=== PATIENT | female | born 1965 | race Caucasian/White ===

== ENCOUNTER 2016-08-13 16:10 | Emergency (ER) | payer OTHER ==
[2016-08-13] MEDS ORDERED: HYDROCODONE/APAP 5/325 TAB PO ONE (16:45)
[2016-08-13] MEDS ORDERED: NS 1,000 ML IV ONE (16:45)
[2016-08-13] MEDS ORDERED: BENZONATATE 100 MG CAP PO ONE ×2 (16:59→17:22)
--- NOTE | 2016-08-13 17:11 | EDPHY ---
H & P Stated Complaint: cough/seen by pcp walter simms not better HPI/ROS: CHIEF COMPLAINT: cough, recent diagnosis of pneumonia HISTORY OF PRESENT ILLNESS: patient reports being ill since last Saturday. It started with a sore throat and quickly progressed to a cough. She had worsening symptoms over those 2 days and was seen at her doctor's office last . She was diagnosed with pneumonia on clinical evaluation without chest x-ray laboratory studies. She was prescribed cough medicine and Zithromax. She has taken all these as prescribed. She felt a little bit better on Saturday and Saturday, but the symptoms returned on Saturday. She also has headache with cough, nausea, body aches, chills. She had a fever until Saturday or Saturday, but she no longer has a fever. No chest pain. No shortness of breath. No abdominal pain. Nausea but no vomiting. No urinary complaints. No neck pain or stiffness. symptoms are all mild to moderate rest , and worse with cough. Minimal improvement with Cheratussin cough medicine. No other associated complaints or modifying factors. REVIEW OF SYSTEMS: Ten systems reviewed and are negative unless otherwise noted in the HPI EXAMINATION General Appearance: Alert, no distress , Nontoxic. Coryza Head: normocephalic, atraumatic Eyes: Pupils equal and round, no conjunctival pallor or injection. EOMs intact. ENT, Mouth: Mucous membranes moist . Uvula midline. There is no erythema or edema. No abscess. Airway is patent. Neck: Normal inspection, supple, non-tender . Painless range of motion all planes. No nuchal rigidity. No meningismus. Respiratory: Mild scattered rhonchi. No consolidation. No wheezing. No retractions. No diminishment. No distress. Cardiovascular: Tachycardic rate of 108 beats per minute. Normal rhythm. No murmur. Pulses intact distally. Gastrointestinal: Abdomen is soft and nontender . No CVA tenderness. No tympany rigidity. Back: non-tender, no bony abnormalities Neurological: A&O, nonfocal . Strength symmetric in all limbs Skin: Warm and dry, no rash Extremities: Nontender, no pedal edema Psychiatric: Mood and affect normal DIFFERENTIAL DIAGNOSES: Including but not limited to Influenza, bronchitis, pneumonia, sepsis, viral illness, lower respiratory infection, upper respiratory infection, pharyngitis MDM: 4:40 p.m. cough, congestion, shortness of breath with recent clinical diagnosis of pneumonia. This was performed last without any laboratory studies are chest x-ray. The patient was given medication but has not improved. She also complains of flu-like symptoms. Her examination is less concerning for pneumonia and more likely to be viral versus influenza. She is mildly tachycardic and mildly tachypneic in triage, thus I did order sepsis laboratory studies. I have a low suspicion for sepsis at this time. She is not hypoxic and she is in no acute distress. 5:50 p.m. patient resting comfortably with improvement of her cough. Vital signs remained stable. Labs thus far are within normal limits. Specifically lactic acid is negative and there is no leukocytosis. Chest x-ray as read by me reveals hilar thickening with possible bronchitis. No definite pneumonia present. 5:55 p.m. chest x-ray read as right perihilar bronchial thickening by radiologist. No pneumonia. I re-evaluated the patient she is resting comfortably feeling better. Oxygen was placed by nasal cannula but I removed this. We will monitor her to make sure that she does not desaturate. Plan for discharge home with prednisone and Tessalon Perles as she is more likely viral plan pneumonia. Patient is comfortable with this plan. 6:20 p.m. I have re-evaluated the patient. She has been off of supplemental oxygen now for greater than 20 minutes. She is consistently between 90 and 94%. She does drop to 89 and 90 while coughing but quickly rebounds without any supplemental oxygen. I do still feel that she is stable for discharge home. She is to return to the emergency department for worsening cough, fever or any chest pain. She is also to return should she have any desaturations as she has a pulse oximeter at home. Patient and spouse are comfortable with this plan. SUPERVISION: Patient was evaluated in conjunction with the supervising physician. Please see their note for details. Source: Patient, Family Exam Limitations: No limitations - Personal History LMP (Females 10-55): 8-14 Days Ago Current Tetanus/Diphtheria Vaccine: Yes - Medical/Surgical History Hx Asthma: No Hx Chronic Respiratory Disease: No Hx Diabetes: No Hx Cardiac Disease: No Hx Renal Disease: No Hx Cirrhosis: No Hx Alcoholism: No Hx HIV/AIDS: No Hx Splenectomy or Spleen Trauma: No Other PMH: shogrens/vasculitis/reynauds/pna - Social History Smoking Status: Current some day smoker Constitutional: Initial Vital Signs Temperature (C) 98.2 F 08/13/16 16:20 Heart Rate 104 H 08/13/16 16:20 Respiratory Rate 22 H 08/13/16 16:20 Blood Pressure 134/84 H 08/13/16 16:20 O2 Sat (%) 92 08/13/16 16:20 O2 Delivery Mode Room Air O2 (L/minute) 2 Allergies/Adverse Reactions: indomethacin Allergy (Verified 08/13/16 16:18) methotrexate Allergy (Verified 08/13/16 16:18) Home Medications: Medication Instructions Recorded Hydroxychloroquine Sulfate 03/28/14 IMITREX 03/28/14 buPROPion 03/28/14 AZITHROMYCIN 08/13/16 Benzonatate [Tessalon Pearles (RX)] 100 mg PO Q8 PRN #15 cap 08/13/16 Cheratussin 08/13/16 Proair Hfa Icu (*) 08/13/16 predniSONE [Deltasone] 60 mg PO DAILY #12 tablet 08/13/16 Medical Decision Making - Data Points Laboratory Results: Laboratory Results 08/13/16 16:55 08/13/16 16:55 08/13/16 08/13/16 08/13/16 16:55 16:55 16:55 WBC RBC Hgb Hct MCV MCH MCHC RDW Plt Count MPV Neut % (Auto) Lymph % (Auto) Woodruff % (Auto) Eos % (Auto) Baso % (Auto) Nucleat RBC Rel Count Absolute Neuts (auto) Absolute Lymphs (auto) Absolute Monos (auto) Absolute Eos (auto) Absolute Basos (auto) Absolute Nucleated RBC Immature Gran % Immature Gran # PT 13.2 SEC SEC (12.0-15.0) INR 1.01 (0.83-1.16) APTT 28.6 SEC SEC (23.0-38.0) VBG Lactic Acid Sodium 128 mEq/L L mEq/L (134-144) Potassium 4.3 mEq/L mEq/L (3.5-5.2) Chloride 101 mEq/L mEq/L (97-110) Carbon Dioxide 17 mEq/l L mEq/l (22-31) Anion Gap 10 mEq/L mEq/L (8-16) BUN 10 mg/dL mg/dL (7-23) Creatinine 0.7 mg/dL mg/dL (0.6-1.0) Estimated GFR > 60 Glucose 74 mg/dL mg/dL (70-100) Calcium 8.8 mg/dL mg/dL (8.5-10.4) Total Bilirubin 0.5 mg/dL mg/dL (0.1-1.4) Conjugated Bilirubin 0.4 mg/dL mg/dL (0.0-0.5) Unconjugated Bilirubin 0.1 mg/dL mg/dL (0.0-1.1) AST 42 IU/L IU/L (14-46) ALT 54 IU/L H IU/L (9-52) Alkaline Phosphatase 80 IU/L IU/L (38-126) Total Protein 8.6 g/dL H g/dL (6.3-8.2) Albumin 4.6 g/dL g/dL (3.5-5.0) Lipase 154.0 IU/L IU/L (23-300) Beta HCG, Qual NEGATIVE Influenza Typ A,B (DFA) 08/13/16 08/13/16 08/13/16 16:55 16:55 16:45 WBC 3.91 10^3/uL 10^3/uL (3.80-9.50) RBC 4.19 10^6/uL 10^6/uL (4.18-5.33) Hgb 13.1 g/dL g/dL (12.6-16.3) Hct 35.6 % L % (38.0-47.0) MCV 85.0 fL fL (81.5-99.8) MCH 31.3 pg pg (27.9-34.1) MCHC 36.8 g/dL H g/dL (32.4-36.7) RDW 12.0 % % (11.5-15.2) Plt Count 217 10^3/uL 10^3/uL (150-400) MPV 9.5 fL fL (8.7-11.7) Neut % (Auto) 76.6 % H % (39.3-74.2) Lymph % (Auto) 11.0 % L % (15.0-45.0) Woodruff % (Auto) 10.5 % % (4.5-13.0) Eos % (Auto) 1.3 % % (0.6-7.6) Baso % (Auto) 0.3 % % (0.3-1.7) Nucleat RBC Rel Count 0.0 % % (0.0-0.2) Absolute Neuts (auto) 3.00 10^3/uL 10^3/uL (1.70-6.50) Absolute Lymphs (auto) 0.43 10^3/uL L 10^3/uL (1.00-3.00) Absolute Monos (auto) 0.41 10^3/uL 10^3/uL (0.30-0.80) Absolute Eos (auto) 0.05 10^3/uL 10^3/uL (0.03-0.40) Absolute Basos (auto) 0.01 10^3/uL L 10^3/uL (0.02-0.10) Absolute Nucleated RBC 0.00 10^3/uL 10^3/uL (0-0.01) Immature Gran % 0.3 % % (0.0-1.1) Immature Gran # 0.01 10^3/uL 10^3/uL (0.00-0.10) PT INR APTT VBG Lactic Acid 0.7 mmol/L mmol/L (0.7-2.1) Sodium Potassium Chloride Carbon Dioxide Anion Gap BUN Creatinine Estimated GFR Glucose Calcium Total Bilirubin Conjugated Bilirubin Unconjugated Bilirubin AST ALT Alkaline Phosphatase Total Protein Albumin Lipase Beta HCG, Qual Influenza Typ A,B (DFA) NEGATIVE FOR FLU (NEGATIVE) Medications Given: Discontinued Medications Hydrocodone Bitart/Acetaminophen ([place] 5/325) 1 tab PO EDNOW ONE Stop: 08/13/16 16:46 Last Admin: 08/13/16 16:57 Dose: 1 tab Benzonatate (Tessalon Pearles) 100 mg PO EDNOW ONE Stop: 08/13/16 17:23 Last Admin: 08/13/16 16:45 Dose: 100 mg Sodium Chloride (Ns) 1,000 mls @ 0 mls/hr IV ONCE ONE PRN Reason: Wide Open Stop: 08/13/16 16:46 Last Admin: 08/13/16 17:04 Dose: 1,000 mls Departure - Departure Disposition: Home, Routine, Self-Care Clinical Impression: Cough Bronchitis, acute Qualifiers: Bronchitis organism: unspecified organism Qualified Code(s): J20.9 - Acute bronchitis, unspecified Condition: Good Instructions: Acute Bronchitis (ED), Viral Syndrome (ED) Additional Instructions: Follow-up with primary care physician. Return to the ER for worsening symptoms, any chest pain, shortness of breath, persistent fever. Referrals: Jose Melendez MD [Primary Care Provider] - As per Instructions Prescriptions: Benzonatate [Tessalon Pearles (RX)] 100 mg PO Q8 PRN #15 cap PRN Reason: Cough, Mild predniSONE [Deltasone] 60 mg PO DAILY #12 tablet
[2016-08-13 17:17] LABS: % IMMATURE GRANULYOCYTES 0.3 % (0.0-1.1); ABSOLUTE IMMATURE GRANULOCYTES 0.01 10^3/uL (0.00-0.10); ADD DIFF? NO; ADD MORPH? NO; ADD SCAN? YES; FRAGMENT RBC FLAG 0 (0-99); HEMATOCRIT 35.6 % (38.0-47.0); HEMOGLOBIN 13.1 g/dL (12.6-16.3); LEFT SHIFT FLG 0 (0-99); LIPEMIA HEMOLYSIS FLAG 90 (0-99); MEAN CELL HEMOGLOBIN 31.3 pg (27.9-34.1); MEAN CELL HEMOGLOBIN CONCENTR. 36.8 g/dL (32.4-36.7); MEAN PLATELET VOLUME 9.5 fL (8.7-11.7); PLATELET CLUMPS FLAG 30 (0-99); PLATELET COUNT 217 10^3/uL (150-400); RED BLOOD CELL COUNT 4.19 10^6/uL (4.18-5.33)
[2016-08-13 17:18] LABS: ATYPICAL LYMPHOCYTE FLAG 110 (0-99)
[2016-08-13 17:22] LABS: INR 1.01 (0.83-1.16); PROTIME(PATIENT) 13.2 SEC (12.0-15.0)
[2016-08-13 17:23] LABS: APTT 28.6 SEC (23.0-38.0)
[2016-08-13 17:30] LABS: ALANINE AMINOTRANSFERASE 54 IU/L (9-52); ALBUMIN 4.6 g/dL (3.5-5.0); ALKALINE PHOSPHATASE 80 IU/L (38-126); ANION GAP 10 mEq/L (8-16); ASPARTATE AMINOTRANSFERASE 42 IU/L (14-46); BILIRUBIN,TOTAL 0.5 mg/dL (0.1-1.4); BILIRUBIN-CONJUGATED 0.4 mg/dL (0.0-0.5); BILIRUBIN-UNCONJUGATED 0.1 mg/dL (0.0-1.1); CALCIUM 8.8 mg/dL (8.5-10.4); CARBON DIOXIDE 17 mEq/l (22-31); CHLORIDE 101 mEq/L (97-110); CREATININE 0.7 mg/dL (0.6-1.0); GLOMERULAR FILTRATION RATE > 60; GLUCOSE 74 mg/dL (70-100); POTASSIUM 4.3 mEq/L (3.5-5.2); SODIUM 128 mEq/L (134-144); TOTAL PROTEIN 8.6 g/dL (6.3-8.2)
[2016-08-13 17:44] LABS: SCAN NEGATIVE
[2016-08-13] MEDS ORDERED: predniSONE 20 MG TAB PO ONE (17:59)
[2016-08-13 18:30] VITALS: BP 137/88; PULSE 75; RESP 16; TEMP 99.5; O2SAT 91
== END 2016-08-13 18:29 | disposition home or self-care (01) ==
DX: J20.9 Acute bronchitis, unspecified (principal); F17.200 Nicotine dependence, unspecified, uncomplicated